=== PATIENT | female | born 1950 | race Caucasian/White ===

== ENCOUNTER → 2017-01-20 | Outpatient (CLI) | payer BC ==
[~2017-01-20] MED LIST: ADDR10T PO; AMPH10CA PO; ASPI-875 PO; ATOM100C PO; CALC-80 PO; CETI10TA17 PO; CRAN450C PO; CYCL10TA45 PO; CYCL10TA9 PO; DESV100T PO; DIAZ-345 PO; GLUC500C2 PO; HCTZ; HYDR-2854 PO; HYDR25CA5 PO; KRIL1CAP12 PO; LACT1CAP62 PO; LORA10TA7 PO; MELA1TAB27 PO; MELA3TAB46 PO; METO100T2 PO; MULT-974 PO; NAPR220T29 PO; OMEP20CA12 PO; POTA99TA25 PO; TRM50T PO; [UNRECOGNIZED DRUG - OTHER]; antihistamine
--- NOTE | 2017-01-20 18:34 | Diagnostic Imaging Report ---
PROCEDURE: US left lower extremity venous. TECHNIQUE: Multiple real-time grayscale images were obtained over the left lower extremity in various projections. Additional duplex Doppler and color Doppler images were also obtained. INDICATION: Left lower extremity edema. FINDINGS: There is normal color flow enhancement throughout the left lower extremity venous systems from the external iliac vein to the ankle. Calf compression shows normal augmentation of flow at the popliteal level. No evidence of popliteal cyst. IMPRESSION: Negative left lower extremity venous ultrasound Dictated by: Dictated on workstation # [id number]
== END ==
LOC: RAD 17:13
PROVIDERS: ATTEND Nurse Practitioner Family
DX: R60.0 Localized edema (principal)

== ENCOUNTER 2018-04-25 22:21 | Emergency (ER) | payer BC ==
[~2018-04-25] VITALS: Ht 167.6 cm; Wt 90.7 kg
[2018-04-26] MEDS ORDERED: RX-HYDROCODONE/APAP 5/325 MG #4 TAB PK PO PRN (00:45)
[2018-04-26] MEDS ORDERED: HYDR-3812 PO (01:20)
--- NOTE | 2018-04-26 01:21 | ED Fall/Injury ---
General Chief Complaint: Lower Extremity Stated Complaint: FALL AT HOME, R LEG PAIN Nursing Triage Note: pt states approx 1 hr ago tripped and fell, twisted wrong, heard a pop in rt leg. complaint of pain rt ankle, radiating to groin. Source: patient Exam Limitations: no limitations History of Present Illness Date Seen by Provider: Apr 25, 2018 Time Seen by Provider: 23:30 Initial Comments This 67-year-old woman presents to the emergency room with a right ankle injury. She believes she tripped on an untied shoelace and a loose floor rug. She rolled her ankle and heard a pop. She denies any significant injury to her parts of her body. She did not strike her head or injure her neck. There was no loss of consciousness. Allergies and Home Medications Allergies Coded Allergies: Sulfa (Sulfonamide Antibiotics) (Verified Allergy, Unknown, 12/01/13) Home Medications Amphet Asp/Amphet/D-Amphet 10 Mg Tablet, 10 MG PO BID, (Reported) Aspirin 81 Mg Tablet.dr, 81 MG PO DAILY, (Reported) Atomoxetine Hcl 100 Mg Capsule, 100 MG PO DAILY, (Reported) Calcium Carbonate/Vitamin D3 1 Each Tablet, 1 TAB PO DAILY, (Reported) Cetirizine Hcl 10 Mg Tablet, 10 MG PO DAILY, (Reported) SWITCHES BETWEEN THIS AND LORATADINE Cranberry Fruit Concentrate 450 Mg Capsule, 900 MG PO HS, (Reported) TAKES 2 (450MG) CAPSULES AT BEDTIME Cyclobenzaprine Hcl 10 Mg Tablet, 10 MG PO Q8H PRN for MUSCLE SPASMS, (Reported) NEEDED FOR MUSCLE SPASMS Desvenlafaxine Succinate 100 Mg Tab.sr.24h, 100 MG PO DAILY, (Reported) Diazepam 5 Mg Tablet, 20-25 MG PO DAILY PRN for DENTAL WORK, (Reported) TAKES 4-5 (5MG) TABLETS NEEDED FOR ANXIETY PRIOR TO DENTAL APPOINTMENT Glucosamine Sulfate 500 Mg Capsule, 500 MG PO DAILY, (Reported) Hydrocodone/Acetaminophen 1 Each Tablet, 1 EACH PO Q4H PRN for PAIN-MODERATE TO SEVERE Prescribed by: MARC ZABALA on 04/26/18 0120 Hydroxyzine Hcl 10 Mg Tablet, 10 MG PO TID PRN for ANXIETY, (Reported) NEEDED FOR ANXIETY Hydroxyzine Pamoate 25 Mg Capsule, 25-50 MG PO HS PRN for SLEEP, (Reported) NEEDED FOR SLEEP Krill/[place]-3/Dha/Epa/Lipids 1 Each Capsule, 300 MG PO DAILY, (Reported) Lactobacillus Acidophilus 1 Each Capsule, 1 CAP PO DAILY, (Reported) Loratadine 10 Mg Tablet, 10 MG PO DAILY, (Reported) SWITCHES BETWEEN THIS AND ZYRTEC FOR ALLERGIES Melatonin/Pyridoxine HCl (B6) 1 Each Tablet, 3 MG PO HS, (Reported) Metoprolol Tartrate 100 Mg Tablet, 100 MG PO BID, (Reported) Multivitamin 1 Each Tablet, 1 TAB PO DAILY, (Reported) Naproxen Sodium 220 Mg Tablet, 220 MG PO HS, (Reported) Omeprazole 20 Mg Capsule.dr, 20 MG PO BID PRN for ACID REFLUX, (Reported) NEEDED FOR ACID REFLUX Potassium Gluconate 99 Mg Tablet, 99 MG PO DAILY, (Reported) Patient Home Medication List Home Medication List Reviewed: Yes Review of Systems Review of Systems Constitutional: no symptoms reported Eyes: No Symptoms Reported Ears, Nose, Mouth, Throat: no symptoms reported Respiratory: no symptoms reported Cardiovascular: no symptoms reported Gastrointestinal: no symptoms reported Genitourinary: no symptoms reported Musculoskeletal: see HPI Skin: no symptoms reported Psychiatric/Neurological: No Symptoms Reported Past Eegjita-Sjmtvr-Zhunzg Hx Patient Social History Recent Foreign Travel: No Contact w/Someone Who Travel: No Recent Infectious Disease Expo: No Immunizations Up To Date Date of Pneumonia Vaccine: Apr 06, 2010 Past Medical History Surgeries: Yes (D&C, conization) Abdominal (colonoscopy, hernia), Tonsillectomy, Tubal Ligation Respiratory: No Cardiac: Yes (PSVT) Hypertension Neurological: No : No Reproductive Disorders: No OPERATIONS INTELLIGENCE History: Tubal Ligation Sexually Transmitted Disease: No HIV/AIDS: No UTI-Chronic Gastrointestinal: No Musculoskeletal: No Endocrine: No HEENT: No Cancer: No Psychosocial: Yes ADD/ADHD, Anxiety, Personality Disorder, Depression Adverse Reaction/Blood Tranf: No Family Medical History Cancer 03 MOTHER Dementia 03 FATHER Family history: Cardiovascular disease 03 FATHER Heart disease 03 FATHER Psychotic disorder 03 MOTHER Physical Exam Vital Signs Vital Signs - First Documented 04/25/18 23:00 Temp 98.4 Pulse 68 Resp 20 B/P (MAP) 141/85 (103) Pulse Ox 100 O2 Delivery Room Air Capillary Refill : Less Than 3 Seconds Height, Weight, BMI Height: 5'6.00" Weight: 200lbs. oz. 90.523639lt; BMI Method:Estimated General Appearance: WD/WN, mild distress HEENT: PERRL/EOMI, normal ENT inspection Cardiovascular: regular rate, rhythm Respiratory: normal breath sounds, no respiratory distress Extremities: other (mild swelling and tenderness about the right ankle. Decreased range of motion due to pain. Tenderness most notable around the lateral malleolus) Neurologic/Psychiatric: syruper II-XII nml as tested, no motor/sensory deficits, alert, normal mood/affect, oriented x 3 Skin: normal color, warm/dry [place] Coma Score Best Eye Response: (4) Open Spontaneously Best Verbal Response: (5) Oriented Best Motor Response: (6) Obeys Commands [place] Total: 15 Progress/Results/Core Measures Results/Orders My Orders Orders - MARC VICENTE MD Ankle, Right, 3 Views (04/25/18 23:38) Steplite (04/26/18 00:41) Rx-Hydrocodone/Apap 5-325 Mg (Rx-Vicodin (04/26/18 00:45) Crutches (04/26/18 00:41) Medications Given in ED Current Medications Medications Dose Ordered Sig/Mayda Route Start Time Stop Time Status Last Admin Dose Admin Acetaminophen/ Hydrocodone Bitart 1 ea Q4H PRN PO 04/26/18 00:45 04/26/18 01:52 DC 04/26/18 01:30 1 EA Vital Signs/I&O 04/25/18 04/26/18 23:00 01:30 Temp 98.4 98.4 Pulse 68 68 Resp 20 20 B/P (MAP) 141/85 (103) 141/85 (103) Pulse Ox 100 100 O2 Delivery Room Air Room Air Blood Pressure Mean: 103 Progress Progress Note : Progress Note Case was discussed with Dr. Hsieh. He recommended a boot and nonweightbearing status with crutches. He will see the patient and 11 o'clock in his clinic today. Ankle was wrapped with an Jan bandage and placed in a step light boot. Crutches were dispensed. A take-home packet of hydrocodone was dispensed. Diagnostic Imaging Diagonstic Imaging: Xray Plain Films/CT/US/NM/MRI: ankle Comments X-ray viewed by me. [employer] report reviewed. Bimalleolar ankle fracture noted. Departure Impression Primary Impression: Bimalleolar fracture of right ankle Qualified Codes: S82.841A - Displaced bimalleolar fracture of right lower leg , initial encounter for closed fracture Additional Impression: Fall on same level Qualified Codes: W18.30XA - Fall on same level, unspecified, initial encounter Disposition: HOME, SELF-CARE Condition: Improved Departure-Patient Inst. Decision time for Depature: 01:19 Referrals: NORMA PATTERSON MD (PCP/Family) Primary Care Physician SYED HSIEH MD Patient Instructions: Ankle Fracture (DC) Add. Discharge Instructions: Do not bear weight on your right ankle. Keep the boot on as much as possible. Elevate to the level of your heart as much as possible. Icing and 20-30 minute intervals will help with pain and swelling. Follow-up with Dr. Hsieh in his office at 11:00 this morning. Call his office after 8:00 to confirm location. Ambulate with crutches so as to not bear weight on the ankle. Take hydrocodone up to one tablet every 4 hours as needed for pain. Avoid use of NSAID medications such as ibuprofen, naproxen, etc. All discharge instructions reviewed with patient and/or family. Voiced understanding. Scripts Hydrocodone/Acetaminophen (Hydrocodone-Acetamin 5-325 mg) 1 Each Tablet 1 EACH PO Q4H PRN for PAIN-MODERATE TO SEVERE, #20 TAB Prov: MARC VICENTE MD 04/26/18 Copy Copies To 1: SYED HSIEH MD, JOSHUA T MD Apr 26, 2018 01:20
[2018-04-26 01:30] VITALS: BP 141/85
--- NOTE | 2018-04-26 07:24 | Diagnostic Imaging Report ---
INDICATION: Right ankle pain and swelling after twisting COMPARISON STUDIES: None FINDINGS: 3 views of the right ankle demonstrates a well aligned bimalleolar fracture. No dislocation is present. IMPRESSION: There is a well aligned bimalleolar fracture. Dictated by: Dictated on workstation # [id number]
== END 2018-04-26 01:45 | disposition home or self-care (01) ==
LOC: EDUNIT# 22:21 → ER 22:22
DX: S82.841A Displaced bimalleolar fracture of right lower leg, initial encounter for closed fracture (principal); I10 Essential (primary) hypertension; F90.9 Attention-deficit hyperactivity disorder, unspecified type; F41.9 Anxiety disorder, unspecified; F32.9 Major depressive disorder, single episode, unspecified; R40.2142 Coma scale, eyes open, spontaneous, at arrival to emergency department; R40.2252 Coma scale, best verbal response, oriented, at arrival to emergency department; R40.2362 Coma scale, best motor response, obeys commands, at arrival to emergency department; Z87.440 Personal history of urinary (tract) infections; Z79.82 Long term (current) use of aspirin; Z82.49 Family history of ischemic heart disease and other diseases of the circulatory system; Z87.19 Personal history of other diseases of the digestive system; Z98.51 Tubal ligation status; Z88.2 Allergy status to sulfonamides; W18.09XA Striking against other object with subsequent fall, initial encounter; X50.1XXA Overexertion from prolonged static or awkward postures, initial encounter
CPT/HCPCS: 73610